=== PATIENT | male | born 2000 | race Hispanic/Latino ===

== ENCOUNTER → 2022-07-12 | Outpatient (CLI) | payer BC, SELFPAY | END | disposition home or self-care (01) | PROVIDERS: PCP Pediatrics; Visit Provider Family Medicine | DX: J02.9 Acute pharyngitis, unspecified (principal) | CPT/HCPCS: 87070; 87077; 87186 ==

== ENCOUNTER 2023-02-06 16:52 | Emergency (ER) | payer SELFPAY ==
[2023-02-06 16:53] VITALS: BP 141/108; PULSE 96; RESP 18; TEMP 37.5; O2SAT 99; BMI 25.2
[2023-02-06 17:00] VITALS: BP 113/87; PULSE 91; PULSE 98; RESP 18; TEMP 36.9; O2SAT 100
--- NOTE | 2023-02-06 17:05 | EDS_ITS ---
HPI History of Present Illness Chief Complaint: Sore Throat Informant: patient Narrative Narrative: Patient sent over from [facility] for concerns of a peritonsillar abscess. 1 week of sore throat. Mild pain with swallowing. He had strep throat in the past last time this past July. No fevers. No past medical history. No allergies. Reports strep test was obtained he did not have results however was told to just come to the emergency department. Has not had abscess before. Does not follow ENT. Prior similar symptoms: Yes PFSH PFSH Medical History Strep throat Home Medications penicillin V potassium 250 mg tablet 500 mg PO BID #20 tabs 02/06/23 [Rx Last Taken Unknown] Allergy/AdvReac Type Severity Reaction Status Date / Time No Known Allergies Allergy Verified 02/06/23 17:04 Surgical History History of open heart surgery Social History Smoking Status: Never smoker ROS ROS ED Constitutional Constitutional ED: Denies chills, fever(s) or sweats Eyes Eyes: Denies change in vision ENT ENT ED: Reports sore throat; Denies dysphagia Cardiovascular Cardiovascular: Denies chest pain, leg edema, palpitations or racing heartbeat Respiratory/Chest Respiratory/Chest: Denies cough, dyspnea or dyspnea on exertion Gastrointestinal Gastrointestinal: Denies abdominal pain, diarrhea, nausea or vomiting Genitourinary Genitourinary ED: Denies dysuria, hematuria or urinary frequency Musculoskeletal Musculoskeletal: Denies back pain, extremity pain or neck pain Integumentary Denies rash or wounds Neurologic Neurologic: Denies headache(s), paresthesias or weakness EXAM Physical Exam Const Vital Signs: 02/06/23 16:53 02/06/23 17:00 02/06/23 17:00 Temperature 99.5 F H 98.4 F 98.4 F Temperature Source Temporal Oral Oral Pulse Rate 96 91 98 Respiratory Rate 18 18 18 Blood Pressure 141/108 H 113/87 H 113/87 H Blood Pressure Mean 119 95 95 Pulse Ox 99 100 100 Oxygen Delivery Method Room Air Room Air Room Air 02/06/23 18:10 02/06/23 18:43 Temperature 99.5 F H Temperature Source Oral Pulse Rate 87 Respiratory Rate 17 17 Blood Pressure 126/73 H Blood Pressure Mean 90 Pulse Ox 100 Oxygen Delivery Method Room Air Positive well nourished and well developed General Appearance ED: well developed and NAD HEENT Reports moist mucous membranes HEENT Narrative: Posterior pharyngeal erythema, noticed some edema of the uvula and tonsils, 2+ symmetric, there is no exudates. Uvula is midline. There is no trismus. normocephalic and atraumatic Eyes PERRL, EOMs intact bilaterally and conjunctivae normal General Eye ED: Yes normal appearance of both eyes Neck no lymphadenopathy and supple General: Negative for tenderness Chest Wall Chest: Negative for tenderness Resp normal respiratory effort and normal air movement Effort and Inspection: symmetric chest movement; Negative for respiratory distress Cardio regular rate, regular rhythm and no murmurs Peripheral Pulses: pulses 2+ throughout GI normal to inspection, nondistended, normoactive bowel sounds and non-tender Palpation: Negative for guarding or rebound tenderness present Back/Spine no CVA tenderness and no thoracic nor lumbar tenderness Extremity normal to inspection General Extremety ED: Negative for edema or tenderness General Extremity: Negative for edema Neuro oriented x3 and no sensory deficits noted Sensorium / Orientation: awake and alert Skin no rashes or lesions noted and no wounds MDM MDM MDM Narrative Medical decision making narrative: Interventions / MDM: Differential diagnosis: Pharyngitis, bacterial versus viral, Diagnosis considered but do not suspect: Peritonsillar abscess, uvula is midline, there is no asymmetric tonsils. Retropharyngeal abscess, patient turning his head left or right no discomfort. My EKG interpretation: N/A Imaging independently reviewed and interpreted by myself: N/A External documents reviewed: N/A Test considered but not ordered:N/A ED course: Patient vital stable nontoxic. There is no asymmetric tonsils uvula is midline, no trismus. Rapid strep obtained negative. Patient treated with dexamethasone with improving symptoms. Discussed possible early abscess or tonsillitis. Discussed with patient imaging would not change plan at this time with plan antibiotics. We will treat with antibiotics. Penicillin started in the ED. Patient agrees with this plan. Discussed strict return precautions. ENT given for follow-up for multiple infections. All questions were answered. Re-evaluation: stable Disposition discussed with patient/family/significant other: Patient Case discussed with consulting clinician: N/A Discharge Plan Triage Chief Complaint: Sore Throat ED Provider: Tam Coughlin Dx/Rx/DC Orders Clinical Impression: Pharyngitis Instructions: Self-Care for Sore Throats, ED Pharyngitis, Report Pending Prescriptions: New penicillin V potassium 250 mg tablet 500 mg PO BID Qty: 20 0RF Stand Alone Forms: ED Work / School Excuse Primary Care Provider: Dennis Lloyd Referrals: Dennis Lloyd MD [Primary Care Provider] - Nikhil Cui MD [Med Staff - Active Staff] - 1-2 Weeks Activity Restrictions/Additional Instructions: Rapid strep negative culture negative. You have erythematous posterior pharynx with edema, there is no clinical peritonsillar abscess at this time. You are started on antibiotics your status post dexamethasone. You are given follow-up with ENT. Return if worsening symptoms. Disposition Disposition: Home, Self Care Discharge Date/Time: 02/06/23 18:52
[2023-02-06] MEDS: dexAMETHasone 4 MG Tablet 12 MG PO (17:26)
[2023-02-06 18:10] VITALS: BP 126/73; PULSE 87; RESP 17; TEMP 37.5; O2SAT 100
[2023-02-06 18:43] VITALS: RESP 17
[2023-02-06] MEDS: Penicillin Vk 250 MG Tablet 500 MG PO (18:45)
== END 2023-02-06 18:52 | disposition home or self-care (01) ==
PROVIDERS: Emergency Provider Emergency Medicine; PCP Pediatrics; Visit Provider Emergency Medicine
DX: J02.9 Acute pharyngitis, unspecified (principal)
CPT/HCPCS: 87880; 99283

== ENCOUNTER → 2025-01-06 | Outpatient (CLI) | payer BC, SELFPAY | END | disposition home or self-care (01) | PROVIDERS: PCP Pediatrics; Visit Provider Physician Assistant | DX: R10.32 Left lower quadrant pain (principal) | CPT/HCPCS: 87491; 87591 ==

== ENCOUNTER → 2025-02-04 | Outpatient (CLI) | payer BC, SELFPAY ==
--- NOTE | 2025-02-04 16:37 | RAD_ITS ---
PROCEDURE: ACUTE ABDOMEN INC CHEST 02/04/2025 REASON FOR EXAM: PAIN TECHNIQUE: Single view chest with supine and upright views of the abdomen. COMPARISON: None. FINDINGS: Moderate amount of fecal residue in the large bowels. The lungs are expanded. There is no demonstrated parenchymal abnormality. There is no demonstrated pleural abnormality. Normal heart and pericardium. Normal mediastinum and radha. Normal visualized pulmonary arteries. Normal visualized aortic arch and descending thoracic aorta. Normal visualized thoracic spine. Normal visualized ribs, clavicles, and shoulders. There is no demonstrated abnormality of the visualized soft tissue structures of the upper abdomen. Normal visualized lung bases. There is an unremarkable bowel gas pattern. There is no demonstrated free abdominal air. Normal visualized liver. Normal visualized spleen. Normal visualized kidneys. The soft tissue structures of the pelvis are unremarkable. Normal visualized osseous structures. RAD/Acute Abdomen Inc Chest IMPRESSION: Moderate amount of fecal residue in the large bowels. [facility]
[2025-02-04 18:31] LABS: Hematocrit 45.1 % (40-54); Mean Corp Hgb Conc 35.5 g/dL (32-36); Mean Corpuscular Hgb 32.1 pg (27.0-32.0); Mean Corpuscular Volume 90.6 fL (80-94); Platelet Count 271 K/mm3 (150-450); RBC Distribution Width CV 12.6 % (11.6-14.6); RBC Distribution Width SD 41.5 fl (35.1-43.9); Red Blood Count 4.98 M/mm3 (4.6-6.2); White Blood Count 8.7 K/mm3 (4.4-11.0)
[2025-02-04 20:01] LABS: AST(SGOT) 19 U/L (<=37); Alanine Aminotransfer ALT/SGPT 20 U/L (<=46); Albumin, Serum 4.6 g/dL (3.5-5.0); Alkaline Phosphatase 58 U/L (40-129); Anion Gap 12 (5-15); BUN 20 mg/dL (4-19); BUN/Creat Ratio 18.4 RATIO (10-20); Bilirubin, Direct 0.12 mg/dL (0.00-0.30); Calcium,Total 9.6 mg/dL (7.6-11.0); Carbon Dioxide 26.2 mmol/L (21.0-32.0); Chloride 101 mmol/L (98-108); Creatinine, Serum 1.09 mg/dL (0.70-1.20); EST Glomerular Filtration Rate 97 (>60); Globulin 2.8 g/dL (2.2-4.2); Glucose 87 mg/dL (70-99); Potassium 3.9 mmol/L (3.3-5.1); Protein, Total 7.3 g/dL (5.9-8.4); Sodium Level 139 mmol/L (133-145); Total Bilirubin 0.22 mg/dL (0.00-1.30); Vitamin D,25 Hydroxy 23.9 ng/mL (30-100)
[2025-02-04 20:16] LABS: Cholesterol 117 mg/dL (<=200); High Density Lipoprotein 45 mg/dL; Low Density Lipoprotein Calc. 54 mg/dL; Triglycerides 90 mg/dL; Very Low Density Lipoprotein 18 mg/dL (5-40)
== END | disposition home or self-care (01) ==
LOC: MTLAB 16:37
PROVIDERS: PCP Family Medicine; Referring Provider Family Medicine; Visit Provider Family Medicine
DX: Z00.00 Encounter for general adult medical examination without abnormal findings (principal); R10.9 Unspecified abdominal pain
CPT/HCPCS: 36415; 74022; 80048; 80061; 80076; 82306; 84402; 85027